=== PATIENT | female | born 2000 | race African-American/Black ===

== ENCOUNTER 2022-01-07 10:22 | Emergency (ER) | payer OTHER ==
[~2022-01-07] VITALS: Ht 172.7 cm; Wt 90.3 kg
[2022-01-07 10:25] VITALS: BP 107/71
--- NOTE | 2022-01-07 10:28 | NUR ---
NO ANSWER WHEN CALLED TO TRIAGE
--- NOTE | 2022-01-07 11:00 | NUR ---
C/O INTERMITENT ABD PAIN, VOMITING X 3 DAYS. LMP 12/27/21. PMH: DENIES
[2022-01-07] MEDS ORDERED: MORPHINE SULFATE 4 MG/ML SYR IM ONE (11:40)
[2022-01-07] MEDS ORDERED: ONDANSETRON 4 MG ODT PO ONE (11:40)
[2022-01-07 12:11] LABS: HEMATOCRIT 36.8 % (36-48); HEMOGLOBIN 11.4 g/dL (12.0-16.0); MEAN CORPUSCULAR HEMOGLOBIN 22 pg (27-31); MEAN CORPUSCULAR HGB CONC 31 g/dL (33-37); MEAN CORPUSCULAR VOLUME 70.8 fL (80-94); PLATELET COUNT (AUTO) 200 K/uL (140-450); RED BLOOD CELL COUNT(AUTO) 5.19 MIL/uL (4.20-5.40); RED CELL DISTRIBUTION WIDTH 14.9 % (11.6-13.7); WHITE BLOOD COUNT (AUTO) 2.4 K/uL (4.8-10.8)
[2022-01-07 12:17] LABS: APPEARANCE,URINE HAZY (CLEAR); BILIRUBIN,URINE 1+ (NEGATIVE); BLOOD, URINE NEGATIVE (NEGATIVE); COLOR,URINE YELLOW (YELLOW); LEUKOCYTE ESTERASE ,URINE NEGATIVE (NEGATIVE); NITRITE, URINE NEGATIVE (NEGATIVE); UGLUCOSE NEGATIVE (NEGATIVE)
[2022-01-07 12:41] LABS: RBC,URINE 0-5 /HPF (0-5); WBC,URINE 0-5 /HPF (0-5)
[2022-01-07 12:42] LABS: URIC ACID CRYSTALS,URINE 0-10 /HPF (None Seen)
[2022-01-07 13:00] LABS: ALBUMIN 3.9 g/dL (3.4-5.0); ANION GAP 14.1 (8-16); CARBON DIOXIDE 27.7 mmol/L (21-32); POTASSIUM 3.8 mmol/L (3.5-5.1); TOTAL BILIRUBIN 0.2 mg/dL (0.0-1.0)
[2022-01-07 13:07] LABS: BASOPHILS % (MANUAL) 0 % (0-2); BLASTS, MANUAL % 0 % (0-0); EOSINOPHILS % (MANUAL) 2 % (0-4); LYMPHOCYTES % (MANUAL) 36 % (20-46); METAMYELOCYTES % 0 % (0-0); MONOCYTES % (MANUAL) 9 % (5-12); MYELOCYTES % 0 % (0-0); OTHER CELLS,MANUAL % 0 (0-0); PROMYELOCYTES % 0 % (0-0)
[2022-01-07 13:09] LABS: BUFFY COAT SMEAR PREP N
[2022-01-07] MEDS ORDERED: ONDA-188 PO (13:32)
[2022-01-07 13:52] VITALS: BP 108/76
== END 2022-01-07 13:52 | disposition home or self-care (01) ==
LOC: MED 10:22
DX: R51.9 Headache, unspecified (principal); R11.10 Vomiting, unspecified; M54.9 Dorsalgia, unspecified; J45.909 Unspecified asthma, uncomplicated
CPT/HCPCS: 36415; 80053; 81001; 81025; 83690; 85025; 96372; 99283; J2270; Q0162